=== PATIENT | female | born 1945 | race Caucasian/White ===

== ENCOUNTER 2018-03-22 17:27 | Emergency (ER) | payer MEDICARE ==
[~2018-03-22] VITALS: Ht 157.5 cm; Wt 49.9 kg
[~2018-03-22 17:27] MED LIST: ASPI81EC PO; Ativan0.5 MG PO; Duoneb 2.5-0.5 M3 ML INH; LEVSOD50 PO; Prednisone20 MG PO; RANI150 PO; Zithromax250 MG PO
== END 2018-03-22 17:58 | disposition home or self-care (01) ==
LOC: ER 17:27
DX: Z76.0 Encounter for issue of repeat prescription (principal); E89.0 Postprocedural hypothyroidism; E05.00 Thyrotoxicosis with diffuse goiter without thyrotoxic crisis or storm; F17.210 Nicotine dependence, cigarettes, uncomplicated; Z79.899 Other long term (current) drug therapy
CPT/HCPCS: 99281

== ENCOUNTER 2018-06-15 07:20 | Day surgery (SDC) | payer MEDICARE | END 2018-06-15 23:02 | disposition home or self-care (01) | LOC: MOI US 07:20 → MOI MAM 07:30 → MOI US 07:30 | DX: D24.2 Benign neoplasm of left breast (principal) | CPT/HCPCS: 19083; 77065; 88305; A4648; G0279 ==

== ENCOUNTER 2018-08-01 07:22 | Day surgery (SDC) | payer MEDICARE ==
[~2018-08-01] VITALS: Ht 157.5 cm; Wt 50.5 kg
[~2018-08-01 07:22] MED LIST changes: +ALEN70; +Zantac150 MG
--- NOTE | 2018-08-01 08:17 | NUR ---
08/01/18 0817 Ghassan Pike CALL LIGHT WITHIN REACH
[2018-08-01] MEDS ORDERED: Aspir 8181 MG PO (08:22)
--- NOTE | 2018-08-01 08:54 | NUR ---
08/01/18 0853 Karol Cleveland [facility] BROUGHT PATIENT TO THE OR.
[2018-11-12] MEDS ORDERED: Multiple Vitam1 EAC1 PO (14:44)
[2018-11-12] MEDS ORDERED: CALCIUM 600 +1 EA11 PO (14:44)
== END 2018-08-01 09:37 | disposition home or self-care (01) ==
LOC: ORSCSDS 07:22
PROVIDERS: Ophthalmology
PROC: 08RJ3JZ Replacement of Right Lens with Synthetic Substitute, Percutaneous Approach (ICD-10-PCS; principal; 2018-08-01 09:00)
DX: H25.11 Age-related nuclear cataract, right eye (principal); E05.00 Thyrotoxicosis with diffuse goiter without thyrotoxic crisis or storm; Z87.891 Personal history of nicotine dependence; Z79.899 Other long term (current) drug therapy
CPT/HCPCS: J2250; J3010; J3301; J7040; J7120; V2632

== ENCOUNTER 2018-11-13 09:33 | Day surgery (SDC) | payer MEDICARE ==
[~2018-11-13] VITALS: Ht 157.5 cm; Wt 45.0 kg
[~2018-11-13 09:33] MED LIST changes: +Aspir 8181 MG PO; +CALCIUM 600 +1 EA11 PO; +Multiple Vitam1 EAC1 PO
--- NOTE | 2018-11-13 10:48 | NUR ---
Patient up to Ambulate independently. Gait steady.REPORTS 3/10 HEADACHE,LEFT FLANK AND UPPER QUADRANT PAIN. Patient states colon prep results clear. History, Chart, Medications and Allergies reviewed before start of procedure.Lungs clear T/O to Auscultation.MOIST, NONPRODUCTIVE COUGH. Patient confirms NPO status and agrees with scheduled surgery. Patient States Post-Procedure ride home has been arranged.
--- NOTE | 2018-11-13 11:39 | NUR ---
11/13/18 1139 Bashir Cornelius 3-LEAD EKG REVIEWED WITH PHYSICIAN PRIOR TO START OF PROCEDURE.PATIENT CONFIRMS NPO STATUS AND AGREES WITH SCHEDULED PROCEDURE.History, Chart, Medications and Allergies reviewed before start of procedure. Bite Block Placed
--- NOTE | 2018-11-13 12:44 | NUR ---
ASSUMED CARE OF PATIENT AT 1230. REPORT RECIEVED FROM EMMIE HALEY. PT LETHARGIC THOUGH AROUSES EASILY TO VERBAL STIMULI. NO C/O PAIN OR DISCOMFORT. SIPPING ON COFFEE.
--- NOTE | 2018-11-13 12:50 | NUR ---
REVIEWED DISCHARGE INSTRUCTIONS WITH PATIENT WHO VERBALIZES UNDERSTANDING OF ALL INSTRUCTIONS GIVEN.
--- NOTE | 2018-11-13 13:05 | NUR ---
PT UP TO DRESS SELF AT SIDE OF BED. NO DIZZINESS.
--- NOTE | 2018-11-13 13:15 | NUR ---
IV DC TIP INTACT. PT DC HOME VIA WC WITH SON TO DRIVE HER HOME.
== END 2018-11-13 22:48 | disposition home or self-care (01) ==
LOC: ORSCMMR 09:33 → ORD 11:00 → ORSCMMR 11:00
PROVIDERS: Internal Medicine Gastroenterology
PROC: 0DBK8ZX Excision of Ascending Colon, Via Natural or Artificial Opening Endoscopic, Diagnostic (ICD-10-PCS; principal; 2018-11-13 11:00)
PROC: 0DB98ZX Excision of Duodenum, Via Natural or Artificial Opening Endoscopic, Diagnostic (ICD-10-PCS; principal; 2018-11-13 11:00)
PROC: 0DBE8ZX Excision of Large Intestine, Via Natural or Artificial Opening Endoscopic, Diagnostic (ICD-10-PCS; principal; 2018-11-13 11:00)
PROC: 0DB68ZX Excision of Stomach, Via Natural or Artificial Opening Endoscopic, Diagnostic (ICD-10-PCS; principal; 2018-11-13 11:00)
DX: R19.4 Change in bowel habit (principal); R10.32 Left lower quadrant pain; K29.80 Duodenitis without bleeding; D12.5 Benign neoplasm of sigmoid colon; K52.9 Noninfective gastroenteritis and colitis, unspecified; R14.0 Abdominal distension (gaseous); E03.9 Hypothyroidism, unspecified; J44.9 Chronic obstructive pulmonary disease, unspecified; F17.210 Nicotine dependence, cigarettes, uncomplicated; Z79.899 Other long term (current) drug therapy; Z79.82 Long term (current) use of aspirin
CPT/HCPCS: 88305; 88342; J2704; J7120

== ENCOUNTER → 2018-11-16 | Outpatient (CLI) | payer MEDICARE | END | disposition home or self-care (01) | LOC: LAB SHORT 16:00 → LAB EV 16:00 | DX: N39.0 Urinary tract infection, site not specified (principal) | CPT/HCPCS: 87077; 87086; 87186 ==

== ENCOUNTER 2019-02-17 19:36 | Emergency (ER) | payer MEDICARE ==
[~2019-02-17] VITALS: Ht 157.5 cm; Wt 49.0 kg
[~2019-02-17 19:36] MED LIST changes: -ALEN70; +ALEN70 PO
[2019-02-17] MEDS ORDERED: LEVSOD50 PO (20:07)
[2019-02-17] MEDS ORDERED: LEVSOD75 PO (20:08)
[2019-02-17 20:17] LABS: BASOPHILS ABSOLUTE AUTO 0.03 K/mm3 (0.00-0.23); BASOPHILS PERCENT AUTO 0 % (0-2); EOSINOPHILS PERCENT AUTO 2 % (0-6); Hematocrit 43.9 % (33.0-51.0); Hemoglobin 14.4 g/dL (11.5-16.0); IMMATURE GRAN ABSOLUTE AUTO 0.01 K/mm3 (0.00-0.10); IMMATURE GRAN PERCENT AUTO 0 % (0-1); LYMPHOCYTES ABSOLUTE AUTO 2.26 K/mm3 (0.84-5.20); LYMPHOCYTES PERCENT AUTO 33 % (21-46); MONOCYTES ABSOLUTE AUTO 0.43 K/mm3 (0.16-1.47); MONOCYTES PERCENT AUTO 6 % (4-13); Mean Corpuscular HGB 31.1 pg (26.0-34.0); Mean Corpuscular HGB Conc 32.8 g/dL (31.5-36.5); Mean Platelet Volume 10.8 fL (9.1-12.4); NEUTROPHILS ABSOLUTE AUTO 3.97 K/mm3 (1.96-9.15); NEUTROPHILS PERCENT AUTO 59 % (41-73); Platelet Count 232 K/mm3 (150-400); RDW Coefficient Variation 13.3 % (11.7-14.2); RDW Standard Deviation 47.3 fL (35.1-46.3); Red Blood Cell Count 4.63 M/mm3 (3.80-5.20)
[2019-02-17 20:20] LABS: Mean Corpuscular Volume 95 fL (80-100)
[2019-02-17 20:37] LABS: Alanine Aminotransfer (ALT/SGP 21 U/L (12-78); Albumin, Blood 3.9 g/dL (3.4-5.0); Albumin/Globulin Ratio 1.1 (0.8-1.8); Alk Phos 71 U/L (50-136); Anion Gap 7 mmol/L (6-16); Aspartate Aminotrans (AST/SGOT 22 U/L (12-37); Bilirubin, Total 0.3 mg/dL (0.1-1.0); Blood Urea Nitrogen 11 mg/dL (8-24); Bun/Creatinine Ratio 15.3 (12.0-20.0); CO2, Blood 27 mmol/L (21-32); Calcium, Blood 10.3 mg/dL (8.5-10.1); Chloride, Blood 109 mmol/L (98-108); Creatinine, Blood 0.72 mg/dL (0.40-1.00); Globulin, Blood 3.4 g/dL (2.2-4.0); Glomerular Filtration Rate >60 (60-); Glucose, Blood 106 mg/dL (70-99); Potassium, Blood 3.6 mmol/L (3.5-5.5); Sodium, Blood 143 mmol/L (136-145); Total Protein, Blood 7.3 g/dL (6.4-8.2); Troponin I <0.015 ng/mL (0.000-0.040)
[2019-02-17 21:02] LABS: Influenza A Negative (NEGATIVE); Influenza B Negative (NEGATIVE)
[2019-02-17 21:04] LABS: Source, Urine Clean Catch
[2019-02-17 21:06] LABS: Appearance, Urine Clear (Clear); Bilirubin, Urine Neg (Neg); Blood, Urine Neg (Neg); Color, Urine Yellow (P-Yellow); Glucose Qualitative, Urine Neg (Neg); Ketones, Urine Neg (Neg); Leukocyte Esterase, Urine 1+ (Neg); Nitrite, Urine Neg (Neg); Protein, Urine Neg (Neg); Urobilinogen, Urine NORM (Normal)
[2019-02-17 21:14] LABS: Amorphous Light (0-Heavy); Bacteria Few /hpf; Red Blood Cells, Urine 0-2 /hpf (0-2); Squamous Epithelial Cells Rare /hpf (Few)
[2019-02-17] MEDS ORDERED: ONDA4ODT MM (21:21)
[2019-02-17] MEDS ORDERED: Motion Sickness25 M1 PO (21:21)
== END 2019-02-17 21:43 | disposition home or self-care (01) ==
LOC: ER 19:36
PROVIDERS: Emergency Medicine; Physician Assistant
DX: H81.399 Other peripheral vertigo, unspecified ear (principal); J40 Bronchitis, not specified as acute or chronic; Z88.2 Allergy status to sulfonamides; Z79.899 Other long term (current) drug therapy; Z79.82 Long term (current) use of aspirin; I25.2 Old myocardial infarction; F17.200 Nicotine dependence, unspecified, uncomplicated
CPT/HCPCS: 36415; 71046; 80053; 81001; 83690; 84484; 85025; 87086; 87804; 93005; 93010; 96361; 96374; 96375; 99284-25; A9270-GY; J1885; J2405; J7030

== ENCOUNTER 2020-04-01 07:46 | Day surgery (SDC) | payer MEDICARE ==
[~2020-04-01] VITALS: Ht 157.5 cm; Wt 51.9 kg
[~2020-04-01 07:46] MED LIST changes: +LEVSOD75 PO; +METO25ER PO; +Motion Sickness25 M1 PO; +ONDA4ODT MM; +Ranitidine HCl150 M1 PO
== END 2020-04-01 09:48 | disposition home or self-care (01) ==
LOC: ORSCSDS 07:46
PROVIDERS: Ophthalmology
PROC: 08RK3JZ Replacement of Left Lens with Synthetic Substitute, Percutaneous Approach (ICD-10-PCS; principal; 2020-04-01 09:00)
DX: H25.12 Age-related nuclear cataract, left eye (principal); I10 Essential (primary) hypertension; E11.9 Type 2 diabetes mellitus without complications; J44.9 Chronic obstructive pulmonary disease, unspecified; Z79.82 Long term (current) use of aspirin; Z79.899 Other long term (current) drug therapy
CPT/HCPCS: J2001; J2250; J3301; J7040; V2632

== ENCOUNTER → 2022-11-08 | Outpatient (CLI) | payer MEDICARE | END | disposition home or self-care (01) | LOC: LAB 11:40 → LAB SHORT 11:40 | DX: R10.13 Epigastric pain (principal) | CPT/HCPCS: 87338 ==

== ENCOUNTER 2024-03-27 19:27 | Observation (INO) | payer MEDICARE ==
[~2024-03-27] VITALS: Ht 157.5 cm; Wt 46.5 kg
[~2024-03-27 19:27] MED LIST changes: +EUTHYROX50 MCG PO; +Enoxaparin 40 MG/0.4 ML SYR SC SCH
[2024-03-27 20:02] LABS: BASOPHILS ABSOLUTE AUTO 0.07 K/mm3 (0.00-0.23); BASOPHILS PERCENT AUTO 1 % (0-2); EOSINOPHILS ABSOLUTE AUTO 0.15 K/mm3 (0.00-0.68); EOSINOPHILS PERCENT AUTO 1 % (0-6); Hematocrit 39.6 % (33.0-51.0); Hemoglobin 13.6 g/dL (11.5-16.0); IMMATURE GRAN ABSOLUTE AUTO 0.04 K/mm3 (0.00-0.10); IMMATURE GRAN PERCENT AUTO 0 % (0-1); LYMPHOCYTES ABSOLUTE AUTO 2.17 K/mm3 (0.84-5.20); LYMPHOCYTES PERCENT AUTO 21 % (21-46); MONOCYTES ABSOLUTE AUTO 0.63 K/mm3 (0.16-1.47); MONOCYTES PERCENT AUTO 6 % (4-13); Mean Corpuscular HGB 31.9 pg (26.0-34.0); Mean Corpuscular HGB Conc 34.3 g/dL (31.5-36.5); Mean Corpuscular Volume 93 fL (80-100); NEUTROPHILS ABSOLUTE AUTO 7.51 K/mm3 (1.96-9.15); NEUTROPHILS PERCENT AUTO 71 % (41-73); Platelet Count 230 K/mm3 (150-400); RDW Coefficient Variation 14.3 % (11.7-14.2); Red Blood Cell Count 4.27 M/mm3 (3.80-5.20); White Blood Cell Count 10.57 K/mm3 (4.00-11.30)
[2024-03-27 20:11] LABS: Albumin, Blood 3.7 g/dL (3.4-5.0); Albumin/Globulin Ratio 1.2 (0.8-1.8); Bilirubin, Total 0.3 mg/dL (0.1-1.0); Bun/Creatinine Ratio 20.9 (12.0-20.0); Calcium, Blood 9.9 mg/dL (8.5-10.1); Creatinine, Blood 0.67 mg/dL (0.40-1.00); Potassium, Blood 3.3 mmol/L (3.5-5.5); Total Protein, Blood 6.7 g/dL (6.4-8.2)
[2024-03-27 20:19] LABS: Thyroid Stimulating Hormone 3.62 uIU/mL (0.360-4.800)
[2024-03-27] MEDS ORDERED: Scopolamine Hydrobromide Patch TOP ONE (21:55)
[2024-03-27] MEDS ORDERED: Meclizine HCl 25 MG Tab PO ONE (21:55)
[2024-03-27 22:22] LABS: Free Thyroxine 1.03 ng/dL (0.70-1.60)
[2024-03-27] MEDS ORDERED: NS 1,000 ML IV SCH (23:20)
[2024-03-27] MEDS ORDERED: Diazepam 5 MG / ML 2ML SYR IV ONE (23:20)
[2024-03-27] MEDS ORDERED: MethylPREDNISolone Sod Succ 125 MG Vial IV ONE (23:20)
[2024-03-27] MEDS ORDERED: FLU VACC TS2024-25(6MOS UP)/PF 45 MCG/0.5 ML SYRINGE IM ONE (23:40)
[2024-03-27] MEDS ORDERED: Ondansetron HCl 2 MG / ML 2ML Vial IV PRN (23:40)
[2024-03-27] MEDS ORDERED: NS 1,000 ML IV ONE (23:40)
[2024-03-28] MEDS ORDERED: FAMO20 PO (00:31)
[2024-03-28] MEDS ORDERED: AMLO5 PO (00:31)
[2024-03-28] MEDS ORDERED: HydrALAZINE HCl 20 MG / ML 1ML Vial IV PRN (00:40)
[2024-03-28] MEDS ORDERED: Aspirin 81 MG Chew PO SCH (01:00)
[2024-03-28 01:15] LABS: Source, Urine Clean Catch
[2024-03-28 01:21] VITALS: BP 168/86
[2024-03-28] MEDS ORDERED: Potassium Chloride 40 MEQ in NS 250 ML IV ONE (02:00)
[2024-03-28 02:11] LABS: Bilirubin, Urine Neg (Neg); Blood, Urine Neg (Neg); Glucose Qualitative, Urine Neg (Neg); Ketones, Urine Neg (Neg); Leukocyte Esterase, Urine Neg (Neg); Nitrite, Urine Neg (Neg); Protein, Urine Neg (Neg); Urobilinogen, Urine NORM (Normal)
[2024-03-28] MEDS ORDERED: Enoxaparin 40 MG/0.4 ML SYR SC SCH (02:19)
[2024-03-28 02:22] LABS: Appearance, Urine Clear (Clear); Color, Urine Yellow (P-Yellow)
--- NOTE | 2024-03-28 04:22 | NUR ---
0115: REC'D PT FROM ER WITH C/O DIZZINESS, LIGHT SENSITIVITY AND NAUSEA. ACCOMPANIED TO 363 BY STAFF, ORIENTED TO ROOM AND CALL LIGHT SYSTEM. ASSSISTED TO BED IN POC WITH CALL LIGHT NEAR. PT IS AAOX4 AND ABLE TO MOVE ALLEXTREMITIES WELL. SBA WITH AMBULATION D/T DIZZINESS. PERWICK IN PLACE. NO ACUTE CONCERNS SINCE ADMIT AND PT REPORTS DIZZINESS IS IMPROVING
[2024-03-28 04:33] VITALS: BP 133/69
[2024-03-28 05:25] LABS: Hematocrit 40.4 % (33.0-51.0); Hemoglobin 13.7 g/dL (11.5-16.0); Mean Corpuscular HGB 31.8 pg (26.0-34.0); Mean Corpuscular HGB Conc 33.9 g/dL (31.5-36.5); Mean Corpuscular Volume 94 fL (80-100); Mean Platelet Volume 11.4 fL (9.1-12.4); Platelet Count 232 K/mm3 (150-400); RDW Coefficient Variation 14.2 % (11.7-14.2); RDW Standard Deviation 49.3 fL (35.1-46.3); Red Blood Cell Count 4.31 M/mm3 (3.80-5.20); White Blood Cell Count 8.05 K/mm3 (4.00-11.30)
[2024-03-28 06:01] LABS: BASOPHILS ABSOLUTE MAN 0.08 K/mm3 (0.00-0.23); BASOPHILS PERCENT MAN 1 % (0-2); EOSINOPHILS PERCENT MAN 0 % (0-6); LYMPHOCYTES % ATYPICAL MANUAL 1 % (0-0); LYMPHOCYTES ABSOLUTE MAN 1.36 K/mm3 (0.84-5.20); LYMPHOCYTES PERCENT MAN 16 % (21-46); MONOCYTES PERCENT MAN 0 % (4-13); SEG NEUTROPHILS PERCENT MAN 82 % (41-73); TOTAL CELLS COUNTED 100
[2024-03-28 06:03] LABS: Albumin, Blood 3.4 g/dL (3.4-5.0); Albumin/Globulin Ratio 1.1 (0.8-1.8); Bilirubin, Total 0.4 mg/dL (0.1-1.0); Calcium, Blood 8.9 mg/dL (8.5-10.1); Creatinine, Blood 0.61 mg/dL (0.40-1.00); Magnesium, Blood 1.8 mg/dL (1.6-2.4); Potassium, Blood 4.3 mmol/L (3.5-5.5); Total Protein, Blood 6.4 g/dL (6.4-8.2)
[2024-03-28] MEDS ORDERED: Sodium Chloride 0.45% 1,000 ML IV ONE (06:30)
[2024-03-28 07:26] VITALS: BP 130/73
[2024-03-28] MEDS ORDERED: Famotidine 20 MG Tab PO SCH (09:00)
[2024-03-28] MEDS ORDERED: Metoprolol Succinate 25 MG TABCR PO SCH (09:00)
[2024-03-28] MEDS ORDERED: Meclizine HCl 25 MG Tab PO SCH (09:00)
[2024-03-28] MEDS ORDERED: AmLODIPine Besylate 5 MG Tab PO SCH (09:00)
--- NOTE | 2024-03-28 10:53 | NUR ---
pt in MRI
[2024-03-28] MEDS ORDERED: Levothyroxine Sodium 0.05 MG Tab PO SCH (11:10)
[2024-03-28 11:44] VITALS: BP 137/82
[2024-03-28 15:16] VITALS: BP 141/77
--- NOTE | 2024-03-28 17:28 | NUR ---
SUMMARY NO ACUTE CHANGES T/O SHIFT. PT REPORTS DIZZINESS SLIGHTLY IMPROVED BUT STILL GETS DIZZY WITH MOVEMENT. ABLE TO AMBULATE TO RESTROOM W/SBA AND GAIT BELT. IV FLUIDS INFUSING PER ORDERS. CALL LIGHT IN REACH.
[2024-03-28 20:07] VITALS: BP 111/66
[2024-03-29 00:33] VITALS: BP 115/62
[2024-03-29 04:42] VITALS: BP 138/73
[2024-03-29 05:30] LABS: Hematocrit 37.1 % (33.0-51.0)
--- NOTE | 2024-03-29 05:57 | NUR ---
AAAOX3, SBA TO BR. DIZZINESS IS IMPROVED BUT STILL THERE IF PT MOVES HEAD OR EYES TO FAST. TELE IN PLACE SR IN THE 70'S. RA. NO ACUTE NEEDS OVERNIGHT
[2024-03-29] MEDS ORDERED: Levothyroxine Sodium 0.075 MG Tab PO SCH (06:00)
[2024-03-29 06:08] LABS: Bun/Creatinine Ratio 17.6 (12.0-20.0); Calcium, Blood 8.4 mg/dL (8.5-10.1); Creatinine, Blood 0.79 mg/dL (0.40-1.00); Magnesium, Blood 1.9 mg/dL (1.6-2.4); Phosphorus, Blood 2.6 mg/dL (2.5-4.9)
[2024-03-29 07:16] VITALS: BP 142/79
[2024-03-29] MEDS ORDERED: ONDA4ODT PO (12:17)
[2024-03-29] MEDS ORDERED: TRANSDERM-SCOP1 EA13 TD (12:18)
--- NOTE | 2024-03-29 14:58 | NUR ---
DISCHARGE SUMMARY PT DC THIS SHIFT DC INSTRUCTION GONE OVER WITH PT WHOM STATED UNDERSTANDING. PT WAS GIVEN DC INSTRUCTION AND PLACED IN DC FOLDER. PT WAS ESCORTED OUT TO PRIVATE VEHICLE VIA WHEELCHAIR BY OUTER DIAMETER GRINDER TOOL.
== END 2024-03-29 14:40 | disposition home or self-care (01) ==
LOC: ER 19:27 → ERHOLD 19:28 → MEDS 19:28 → ERHOLD 19:28 → MEDS 03-28 01:14
PROVIDERS: Emergency Medicine; Hospitalist; ADMIT Internal Medicine
DX: H81.8X9 Other disorders of vestibular function, unspecified ear (principal); H81.399 Other peripheral vertigo, unspecified ear; M81.0 Age-related osteoporosis without current pathological fracture; I25.2 Old myocardial infarction; I16.0 Hypertensive urgency; E05.00 Thyrotoxicosis with diffuse goiter without thyrotoxic crisis or storm; M06.9 Rheumatoid arthritis, unspecified; Z79.82 Long term (current) use of aspirin; Z79.899 Other long term (current) drug therapy; Z88.2 Allergy status to sulfonamides
CPT/HCPCS: 36415; 70450; 70551; 80048; 80053; 81003; 83735; 84100; 84439; 84443; 85014; 85018; 85025; 93005; 93010; 96365; 96366; 96372; 96374; 96375; 97161; 97165; 97535; 99285-25; A9270; G0378; J1650; J2919; J3360; J3480; J7030; J7050